=== PATIENT | female | born 1945 | race Caucasian/White ===

== ENCOUNTER → 2017-07-13 09:49 | Outpatient (CLI) | payer MEDICARE, OTHER ==
[~2017-07-13 09:49] MED LIST: ADVAIR 250/501 DISK INH; BREO ELLIPTA 11 EACH INH; CITRACAL + D CA1 TAB; CLARITIN 10 MG10 MG PO; FLUTICASONE PRO16 GM NS; MULTI-DAY VITAM1 TAB PO; OCUVITE TABLET1 TA1 PO; PREDNISONE10 MG PO; SINGULAIR10 MG PO
[2017-07-13 11:00] VITALS: BP 120/68; BMI 19.4
== END | disposition home or self-care (01) ==
LOC: D.OPS 09:49
DX: M81.0 Age-related osteoporosis without current pathological fracture (principal)